=== PATIENT | female | born 1950 | race Caucasian/White ===

== ENCOUNTER → 2016-06-15 | Outpatient (CLI) | payer BC ==
[~2016-06-15] MED LIST: AZIT250T5 PO; CHOL100010 PO; CLTP PO; GLUC10007 PO; MISC1CAP7 PO; MULT-513 PO; OMEP40CA PO; OXYC-57 PO; SERT50TA PO; WARF2TAB PO
== END | disposition home or self-care (01) ==
LOC: C.RDSM 10:00
PROVIDERS: ATTEND Physical Medicine & Rehabilitation Sports Medicine
DX: Z96.659 Presence of unspecified artificial knee joint (principal)

== ENCOUNTER 2016-09-02 05:44 | Inpatient (IN) | payer OTHER, BC ==
--- NOTE | 2016-08-14 12:17 | PAT Medication Instructions ---
Service Date Aug 14, 2016. Current Home Medication List Calcium/Vitamin D (Caltrate 600 Plus *), 2 TAB PO BID Cholecalciferol (Vitamin D), 4,000 INTER.UNIT PO QAM Glucosamine Sulfate (Glucosamine), 1,000 MG PO QAM Multivitamins/Minerals (Mvi With Minerals), 1 TAB PO QAM Omeprazole (Prilosec), 40 MG PO QAM Sertraline (Zoloft), 50 MG PO QAM Medication Instructions For Your Scheduled Surgery - Hold the following medications 2 weeks prior to surgery: Glucosamine Sulfate (Glucosamine), 1,000 MG PO QAM - Hold the following medications the morning of surgery: Multivitamins/Minerals (Mvi With Minerals), 1 TAB PO QAM Calcium/Vitamin D (Caltrate 600 Plus *), 2 TAB PO BID Cholecalciferol (Vitamin D), 4,000 INTER.UNIT PO QAM - Take the following medications the morning of surgery with a sip of water: Omeprazole (Prilosec), 40 MG PO QAM Sertraline (Zoloft), 50 MG PO QAM If you have any questions please call us at [phone] (Dari Reich PA-C) or [phone] or [phone]
[2016-08-14 12:57] LABS: HEMATOCRIT 41.2 % (37-47); MEAN CELL VOLUME 89.8 fL (80-100); MEAN CORPUSCULAR HEMOGLOBIN 30.7 pg (25-34); RED BLOOD COUNT 4.59 M/uL (4.2-5.4); WHITE BLOOD COUNT 4.52 K/uL (4.8-10.8)
[2016-08-14 12:58] LABS: BASO % 0.4 %; BASO ABS # 0.02 K/uL (0-0.2); COMPLETE YES; EOS % 2.9 %; LYMPH % 23.5 %; LYMPH ABS # 1.06 K/uL (1.2-3.4); MEAN CORPUSCULAR HGB CONC 34.2 g/dl (32-36); MEAN PLATELET VOLUME 9.7 fL (7.4-10.4); MONO % 7.5 %; NEUT % 65.7 %; PLATELET COUNT 382 K/uL (130-400)
[2016-08-14 13:00] LABS: URINE APPEARANCE CLEAR (CLEAR); URINE BILIRUBIN NEG (NEG); URINE COLOR YELLOW; URINE NITRITE NEG (NEG); URINE SPECIFIC GRAVITY 1.017 (1.000-1.030); UROBILINOGEN NEG (NEG); ZZUR CULT IF INDIC CLEAN CATCH NO
[2016-08-14 13:09] LABS: PROTHROMBIN TIME (PATIENT) 10.2 SECONDS (9.0-12.0)
[2016-08-14 13:15] LABS: BUN/CREATININE RATIO 20.2 (10-20); C-REACTIVE PROTEIN 0.62 mg/dl (0-0.29); CALCIUM 9.2 mg/dl (8.5-10.1); CREATININE 0.84 mg/dl (0.60-1.20); POTASSIUM 4.1 mmol/L (3.5-5.1)
[2016-08-14 13:24] LABS: MANUAL MICROSCOPIC REQUIRED? NO; REVIEW REQ? NO
--- NOTE | 2016-08-25 10:15 | HISTORY & PHYSICAL EXAMINATION ---
DATE OF ADMISSION: 09/02/2016 CHIEF COMPLAINT: Left knee pain. HISTORY OF PRESENT ILLNESS: This 65-year-old white female presents to the office with complaints of left knee pain that has developed over the last 6 months. She has been physically active and has been going to the gym. Pain is increasing. She notes occasional mild effusions. No redness or warmth. She denies any fevers or chills. There is a history of previous left knee hemiarthroplasty on 06/19/2004. She had done well with that until recently. Pain is now affecting her ADLs. X-rays have been obtained. She has a previous history of right total knee arthroplasty and has done very well with that. She elects to proceed with the same on the left. PAST MEDICAL HISTORY: Significant for DJD, GERD, and hiatal hernia. PREVIOUS SURGERIES: Neck surgery for diskectomy in 1990, left knee hemiarthroplasty in June 2004, right shoulder rotator cuff surgery August 2013, basal joint reconstruction of the thumb in 2006, right knee arthroscopy 2005, D&C, and right total knee replacement 09/17/2011. ALLERGIES: KNOWN ALLERGY TO KETOPROFEN, PENICILLIN, AND SULFA DRUGS. CURRENT MEDICATIONS: Advil p.r.n., Caltrate b.i.d., multivitamin daily, omeprazole 40 mg p.o. daily, and Zoloft 50 mg p.o. daily. FAMILY HISTORY: Significant for diabetes and heart disease. SOCIAL HISTORY: The patient is . No tobacco use, retired. REVIEW OF SYSTEMS: Significant for above stated conditions, otherwise unremarkable. PHYSICAL EXAMINATION: GENERAL: Well-developed and well-nourished elderly white female in no acute distress. Looks younger than her stated age. Alert and oriented. SKIN: Warm and dry with good turgor. No rashes or lesions. No ecchymosis or erythema. HEENT: Normocephalic and atraumatic. Eyes, PERRLA, EOMI. Nares patent bilaterally without turbinate enlargement. Oropharynx without erythema or exudate. No lesions noted. Uvula midline. Oral mucosa moist. Good dentition. HEART: RRR. No MGR. LUNGS: Clear to auscultation bilaterally. No crackles, rhonchi or wheezing. Good air movement. ABDOMEN: Obese. Bowel sounds present x4. Soft and nontender. No organomegaly. No masses. MUSCULOSKELETAL: Left knee has a well-healed surgical scar. No intraarticular effusion. Focal discomfort with palpation over the joint line, both medially and laterally. Full terminal extension. Flexion to greater than 120 degrees. Strength is 5/5 with good quad tone. No defect in the patellar tendon or quadriceps tendon. Stable collateral ligaments. Ambulatory with a fairly normal gait. NEUROLOGIC: Gross sensation is intact across both lower extremities by soft touch. Peripheral pulses are 2+. DATA: Radiographic images previously obtained show the hemiarthroplasty with fragmentation of some of her cement as well as some arthritic changes in the lateral compartment. IMPRESSION: Left knee degenerative joint disease with medial hemiarthroplasty. PLAN: The patient was educated regarding today's findings. Informed written consent was obtained to proceed with left knee open conversion of hemiarthroplasty to total knee arthroplasty. Postoperative prescriptions for Percocet and Coumadin will be provided at discharge from the hospital. Anticipate discharge to home with outpatient PT upon discharge. She already has a walker and cane. Medical clearance has been requested from her PCP. Preoperative lab work, EKG, chest x-ray, sed rate and CRP have been obtained. TAURUS
[2016-09-02] VITALS (8 sets, daily range): BP systolic 112–143; BP diastolic 69–85; PULSE 62–78; TEMP 36.4–36.8; O2SAT 94–100; Ht 167.6 cm; Wt 86.0 kg
[~2016-09-02] VITALS: Ht 167.6 cm; Wt 86.0 kg
[~2016-09-02 05:44] MED LIST changes: -AZIT250T5 PO; +LACTATED RINGER'S 1000ML 500 ML IV ONE; -MISC1CAP7 PO; -OXYC-57 PO; -WARF2TAB PO
[2016-09-02] MEDS ORDERED: CEFAZOLIN 2000 MG/60 ML D5W 60 ML IV SCH (06:00)
[2016-09-02] MEDS ORDERED: LACTATED RINGER'S 1000ML IV SCH (06:00)
[2016-09-02] MEDS ORDERED: LACTATED RINGER'S 1000ML 1,000 ML IV SCH (06:00)
[2016-09-02] MEDS ORDERED: ROPIVACAINE 5MG/ML 30 ML 150 MG, BUPIVACAINE/EPINEPHR 0.5% MPF 30 ML, KETOROLAC TROMETH... INFIL SCH ×7 (06:00)
[2016-09-02] MEDS ORDERED: TRANEXAMIC ACID INJ 1,000 MG in SODIUM CHLORIDE 0.9% 100ML 100 ML IV SCH ×2 (06:00→17:00)
[2016-09-02] MEDS ORDERED: VANCOMYCIN INJ 1,300 MG in SODIUM CHLORIDE 0.9% 250ML 250 ML IV SCH ×2 (06:00→21:00)
[2016-09-02] MEDS ORDERED: TRAMADOL HCL 50 MG TAB PO SCH (06:00)
[2016-09-02] MEDS ORDERED: LACTATED RINGER'S 1000ML 500 ML IV ONE (06:00)
--- NOTE | 2016-09-02 06:20 | History & Physical Bridge Note ---
H&P Re-Evaluation Bridge Note: I have examined the patient, reviewed the History & Physical and in the interval since the performance of the History & Physical I have noted the following changes of clinical significance: No changes noted
[2016-09-02] MEDS ORDERED: BUPIVACAINE 0.25% 30 ML VIAL ONE (07:26)
[2016-09-02] MEDS ORDERED: BUPIVACAINE 0.5 % 5 MG/1 ML PF 10ML VIAL ONE (07:26)
[2016-09-02] MEDS ORDERED: ONDANSETRON INJ 2 MG/ML 2 ML VIAL IV PRN ×2 (07:30→11:00)
[2016-09-02] MEDS ORDERED: FENTANYL CITRATE INJ 50 MCG/1 ML 2 ML VIAL IV PRN (07:30)
[2016-09-02] MEDS ORDERED: EpHEDrine SULFATE INJ 50 MG/ML AMP IV PRN (07:30)
[2016-09-02] MEDS ORDERED: ATROPINE SULFATE 0.1 MG/ML 5ML SYR IV PRN (07:30)
[2016-09-02] MEDS ORDERED: MIDAZOLAM HCL 1 MG/ML 2ML VIAL ONE ×3 (07:32→09:01)
[2016-09-02] MEDS ORDERED: PROPOFOL IV EMULSION 10 MG/ML 20 ML VIAL IV ONE ×2 (07:50→10:24)
[2016-09-02] MEDS ORDERED: POVIDONE-IODINE OP SOLN 30 ML BTL ONE (08:24)
[2016-09-02] MEDS ORDERED: ORTHO JOINT ANESTHETIC ONE (08:24)
--- NOTE | 2016-09-02 10:49 | [facility] Post Operative Brief Note ---
Immediate Operative Summary Operative Date Sep 02, 2016. Pre-Operative Diagnosis Left knee degenerative joint disease with medial hemiarthroplasty Post-Operative Diagnosis Same as preoperative diagnosis Procedure(s) Performed Left Knee Hemiarthroplasty Conversion to Left Total Knee Arthroplasty Surgeon Dr. Mitul Raphael Grain Combine Driver Surgeon(s) Thai Ma PA-C Estimated Blood Loss 25 ml Findings poly wear/well fixed implants/lateral and patellofemarol djd Fluids (cc crystalloids) 1800cc Specimens Permanent Specimens A: Explanted hardware left knee B: Left knee bone and tissue Drains none Anesthesia spinal Complication(s) None Disposition Recovery Room / PACU
[2016-09-02] MEDS ORDERED: ALUMINUM/MAGNESIUM/SIMETH (MAALOX MAX) 30 ML UDC PO PRN (11:00)
[2016-09-02] MEDS ORDERED: BISACODYL 10 MG SUPP PR PRN (11:00)
[2016-09-02] MEDS ORDERED: METOCLOPRAMIDE HCL INJ 5 MG/ML 2 ML VIAL IV PRN (11:00)
[2016-09-02] MEDS ORDERED: ACETAMINOPHEN 325 MG TAB PO PRN (11:00)
[2016-09-02] MEDS ORDERED: MoRPHine SULFATE 2 MG/ML CARP IV PRN (11:00)
[2016-09-02] MEDS ORDERED: DiphenhydrAMINE HCL 50 MG/ML VIAL IV PRN (11:00)
[2016-09-02] MEDS ORDERED: MAGNESIUM HYDROXIDE SUSP 30 ML UDC PO PRN (11:00)
[2016-09-02] MEDS ORDERED: ACETAMINOPHEN IV 100 ML IV PRN (11:00)
--- NOTE | 2016-09-02 11:00 | DIAGNOSTIC IMAGING REPORT ---
TWO VIEWS LEFT KNEE CLINICAL HISTORY: Postoperative examination. FINDINGS: AP and crosstable lateral portable views of the left knee are obtained. A left knee arthroplasty is in near anatomic alignment. There has been undersurface remodeling of the patella. No acute fracture is seen. There are expected postoperative changes around the knee including skin clips, soft tissue edema, and subcutaneous gas. IMPRESSION: Expected postoperative changes status post left knee arthroplasty. No acute fracture is seen. Electronically signed by: Flavio Terrell M.D. 09/02/2016 10:59 AM Dictated Date/Time: 09/02/2016 10:59 AM
--- NOTE | 2016-09-02 11:06 | OPERATIVE REPORT ---
DATE OF OPERATION: 09/02/2016 PREOPERATIVE DIAGNOSIS: Left knee degenerative joint disease with medial hemiarthroplasty. POSTOPERATIVE DIAGNOSIS: Left knee same. PROCEDURE: Left knee conversion of hemiarthroplasty to total knee arthroplasty. SURGEON: Dr. Zuniga. SIDE SHOW ENTERTAINER: Boone Ma PA-C. HISTORY OF PRESENT ILLNESS: This 65-year-old white female presented to the office with complaints of left knee pain that had been getting progressively worse. She was trying to be more active in workout but her knee pain was inhibiting her progress. She had tried conservative care measures without success. She elected to proceed with surgical intervention after being educated about potential risks and outcomes. OPERATION: The patient was administered a spinal anesthetic and then taken to the operating room where she was given sedation. She was prepped and draped in the usual sterile fashion. Please see Dr. Zuniga's operative report for specifics of the procedure. I was present for the entire case from initial patient positioning through final wound closure. Assistance was provided in tissue retraction, hemostasis, removal of previous hardware, trial implant placement, final implant placement, and final wound closure. The patient was taken to the recovery room in satisfactory condition. I attest to the content of the Intraoperative Record and any orders documented therein. Any exceptions are noted below. TAURUS
--- NOTE | 2016-09-02 11:10 | OPERATIVE REPORT ---
DATE OF OPERATION: 09/02/2016 PREOPERATIVE DIAGNOSIS: Advancing osteoarthritis, left knee in the presence of hemiarthroplasty medial compartment. POSTOPERATIVE DIAGNOSIS: Same. OPERATION PERFORMED: Conversion of hemiarthroplasty to total knee replacement and removal of hemiarthroplasty implant and conversion to total knee replacement, cemented left knee. SURGEON: Dr. Zuniga. ROADSIDE MECHANIC: Boone Ma PA-C. No resident or fellow available. SUMMARY OF IMPLANTS: Size 3 left posterior approach posterior cruciate substituting femur, size 4 tibial tray, oval dome 3 peg patella, tibial insert rotating platform size 3 15 mm thick posterior cruciate substituting. Two bags of Palacos G cement. ESTIMATED BLOOD LOSS: 25 mL. CRYSTALLOID: 1800 mL. DVT prophylaxis per protocol. PERIOPERATIVE SITUATION: Medically cleared female with hemiarthroplasty of her left knee that has been in for roughly 12 years now is having some increased wear throughout the knee joint and notes that she has pain that interferes with activities of daily living. She wants to proceed with conversion to total knee replacement. X-rays reveal some subchondral sclerosis about the tibia and the femur, some loose cement on the tibia. Of note, is that she has had no infection issues at any time. Her sed rate is within normal limits. C-reactive protein is 0.6. She has had no real effusion. OPERATION AND FINDINGS: OPERATION: The patient appropriately identified, site verified, consent verified, 1300 mg of vancomycin confirmed as being given. The left lower extremity was prepped and draped in usual routine fashion. Total tourniquet time was approximately 80 minutes. The old incision was utilized and extended proximally. Parapatellar arthrotomy performed. Appropriate soft tissue releases and debridement occurred. There was significant particulate wear from the poly and cement. There was no sign of any gross infection. The fluid was clear. The implants actually were not even loose, this was just all poly wear. The femur was addressed first. After appropriate soft tissue releases performed and distal femur entered the implant was left in position and using distal cutting jig was applied for 12 mm resection. The cut was then made, complete laterally, starting immediately and using the Vicente osteotomes and some saws the implant which was fixed solid was worked loose and ultimately removed without damaging any more of the femur. The cut was then completed. Proximal tibia was then delivered into the wound. The tibial implant was not loose. There was no sign of infection. The tibial alignment guide was seated. This made the cut just below the Repicci tray. The cut was then made, excellent tibia was obtained. There was a small cyst medially which was curetted. This had clear fluid in it. The tibia was sized to a 3. The femoral sizing guide was then seated, appropriate care taken to place the epicondylar axis in the right position working off the seating guide holes and then once it was verified in good position cutting block applied and the anterior and posterior condylar and chamfer cuts made. The flexion gap and extension gap were excellent. The femur again was sized to a 3 and that was between a 3 and 4, was measured 4 cut 3. There was no notching. Once this was verified that everything was good with the flexion extension gaps the box cut was made and the size 3 trial seated. Two injections of the Orthomix were placed in the posterior capsule prior to inserting the trial implant. The tibia was then broached and reamed. There was some minor cement that needed to be removed medially. This was all taken care without any undue harm to the tibia. The size 4 tray fit well and with a 15 mm spacer the knee was very stable in all planes including maximum flexion. The patella was sized to a 38, resection made leaving 15 mm, trial seating hole pegs made and the trial seated, it tracked well. All remaining implants were then removed and irrigated with Betadine, irrigated with Pulsavac, injected with Orthomix about the incision and the periosteum and then after everything was cleaned and dried the permanents were cemented into position. After 12 minutes, the tourniquet deflated. After 14 minutes the knee flexed and the trial implant removed. Some minor cement removal was needed. This was then irrigated with Betadine and Pulsavac and then Betadine again. The permanent liner seated, knee reduced and then the wound closed using #1 Ethibond, #1 Vicryl, 2-0 Vicryl and stainless steel clips. Appropriate dressing applied. The patient transferred to recovery room in satisfactory condition having tolerated the procedure well. SUMMARY OF IMPLANTS: As noted above. I attest to the content of the Intraoperative Record and any orders documented therein. Any exceptio ns are noted below.
[2016-09-02] MEDS ORDERED: MoRPHine SULFATE 4 MG/ML 1 ML CARP\\VIAL IV PRN (11:15)
[2016-09-02] MEDS ORDERED: OXYC-57 PO (11:23)
[2016-09-02] MEDS ORDERED: WARF2TAB PO (11:23)
[2016-09-02] MEDS ORDERED: AZIT250T5 PO (11:24)
--- NOTE | 2016-09-02 11:32 | Anesthesiology Progress Note ---
Anesthesia Post Op Note Date & Time Sep 02, 2016 at 11:32 Vital Signs Pain Intensity: 0 Vital Signs Past 12 Hours Date Time Temp Pulse Resp B/P Pulse Ox O2 Delivery O2 Flow Rate FiO2 09/02/16 11:25 58 16 127/70 99 Nasal Cannula 2 09/02/16 11:15 60 14 123/74 100 Nasal Cannula 2 09/02/16 11:05 65 14 117/72 100 Nasal Cannula 2 09/02/16 10:55 70 14 112/75 100 Nasal Cannula 2 09/02/16 10:47 36.1 73 16 108/68 99 Mask 10 09/02/16 06:10 36.8 75 18 135/85 97 Room Air Notes Mental Status: alert / awake / arousable, participated in evaluation Pt Amnestic to Procedure: Yes Nausea / Vomiting: adequately controlled Pain: adequately controlled Airway Patency, RR, SpO2: stable & adequate BP & HR: stable & adequate Hydration State: stable & adequate Neuraxial Anesthesia: was administered, sensory block is resolving Anesthetic Complications: no major complications apparent
--- NOTE | 2016-09-02 12:06 | PROGRESS NOTE ---
DATE: 09/02/2016 Postop check in the recovery room. At this point in time, spinal is still in place but she is comfortable. Her vital signs are stable. She is afebrile. She denies chest pain, shortness of breath, fever, chills, nausea, vomiting or headache. Wound dressing clean, dry and intact. Postop x-rays look excellent. ASSESSMENT: Doing well. Continue with care pathway. Mobilize TANA.
[2016-09-02] MEDS ORDERED: D5W AND 1/2NSS + 20MEQ KCL 1,000 ML IV SCH (12:45)
[2016-09-02] MEDS: FERROUS GLUCONATE 324 MG TAB PO SCH ×2 (14:18→18:25)
[2016-09-02] MEDS: KETOROLAC TROMETHAMINE 15 MG/ML VIAL IV. SCH ×2 (14:19→19:23)
[2016-09-02] MEDS: OXYCODONE HCL IR 5 MG TAB (IMMEDIATE RELEASE) PO PRN ×3 (14:27→22:09)
[2016-09-02] MEDS ORDERED: WARFARIN SOD 5 MG TAB PO ONE (16:00)
[2016-09-02] MEDS ORDERED: NURSING VERBAL MED ORDER ONE (20:15)
[2016-09-02] MEDS: DOCUSATE SODIUM 100 MG CAP PO SCH (21:32)
[2016-09-03 00:05] VITALS: BP 126/70; PULSE 82; TEMP 36.9; O2SAT 95
[2016-09-03] MEDS: KETOROLAC TROMETHAMINE 15 MG/ML VIAL IV. SCH ×2 (01:24→06:26)
[2016-09-03 03:20] VITALS: BP 129/66; PULSE 86; TEMP 36.7; O2SAT 93
[2016-09-03] MEDS: OXYCODONE HCL IR 5 MG TAB (IMMEDIATE RELEASE) PO PRN ×3 (03:32→09:01)
[2016-09-03 05:31] LABS: HEMATOCRIT 33.3 % (37-47); MEAN CELL VOLUME 92.5 fL (80-100); MEAN CORPUSCULAR HEMOGLOBIN 30.6 pg (25-34); MEAN PLATELET VOLUME 9.5 fL (7.4-10.4); PLATELET COUNT 254 K/uL (130-400); WHITE BLOOD COUNT 8.11 K/uL (4.8-10.8)
[2016-09-03 05:45] LABS: PROTHROMBIN TIME (PATIENT) 10.4 SECONDS (9.0-12.0)
[2016-09-03 05:55] LABS: BUN/CREATININE RATIO 16.4 (10-20); CALCIUM 8.1 mg/dl (8.5-10.1); CREATININE 0.84 mg/dl (0.60-1.20); POTASSIUM 4.1 mmol/L (3.5-5.1)
--- NOTE | 2016-09-03 07:02 | PROGRESS NOTE ---
DATE: 09/03/2016 Postop day 1 status post left total knee conversion of hemiarthroplasty to total knee replacement. At this point in time the patient is doing well, has no major issues. Denies nausea, vomiting, chest pain, shortness of breath, fever or chills. Her pain is well managed. Vital signs are stable. She is afebrile. Neurovascular check femoral sciatic nerve is good. Dressing clean, dry and intact. Abdomen soft, nontender. Calves nontender. Laboratory work reveals hematocrit is stable at 33.3, INR is 1.0, serology reveals hepatitis C screen is pending. ASSESSMENT: Overall, doing well status post conversion of hemiarthroplasty to total knee replacement. At this point in time that things are doing well. Will discharge today after PT, OT. Follow up in 2 weeks for staple removal. Discharge on 4 mg Coumadin daily. Discharge on rifampin 600 mg p.o. daily for a week since it is a revision. MTDD
[2016-09-03] MEDS ORDERED: RIFAMPIN 300 MG CAP PO STA (07:06)
[2016-09-03] MEDS ORDERED: DEXAMETHASONE INJ 10 MG in SYRINGE 0 ML IV ONE (07:30)
[2016-09-03 07:52] VITALS: BP 117/73; PULSE 76; TEMP 36.6; O2SAT 95
--- NOTE | 2016-09-03 08:53 | Orthopedic Progress Note ---
Orthopedic Progress Note Date of Service Sep 03, 2016. Subjective Post OP Day: 1 Reports: feeling well, pain controlled w PO medications, Denies: SOB, calf pain , chest pain, complaints, light headedness, nausea / vomiting Additional Notes: desires to go home today Objective calves soft nontender, N/V intact, capillary refill less than 2 sec., dressing C /D/I, incision C/D/I, A&O x3, toes mobile, CMS intact scant drainage, wound looks very good. Date Time Temp Pulse Resp B/P Pulse Ox O2 Delivery O2 Flow Rate FiO2 09/03/16 08:22 Room Air 09/03/16 07:52 36.6 76 19 117/73 95 Room Air 09/03/16 03:20 36.7 86 16 129/66 93 Room Air 09/03/16 00:15 Room Air 09/03/16 00:05 36.9 82 18 126/70 95 Room Air 09/02/16 19:18 36.8 78 16 125/76 94 Room Air 09/02/16 15:18 36.5 76 16 112/69 96 Room Air 09/02/16 14:10 76 18 118/72 09/02/16 14:00 Room Air 09/02/16 13:42 36.6 76 18 128/78 100 Nasal Cannula 2.0 09/02/16 12:53 70 18 119/73 99 2.0 09/02/16 12:15 64 16 143/83 98 Nasal Cannula 2.0 09/02/16 11:45 36.4 62 12 127/73 98 Nasal Cannula 2.0 09/02/16 11:45 Nasal Cannula 09/02/16 11:45 Nasal Cannula 2.0 09/02/16 11:35 36.5 66 20 121/73 100 Nasal Cannula 2 09/02/16 11:25 58 16 127/70 99 Nasal Cannula 2 09/02/16 11:15 60 14 123/74 100 Nasal Cannula 2 09/02/16 11:05 65 14 117/72 100 Nasal Cannula 2 09/02/16 10:55 70 14 112/75 100 Nasal Cannula 2 09/02/16 10:47 36.1 73 16 108/68 99 Mask 10 Laboratory Results 24 Hours: Test 09/03/16 05:22 Hematocrit 33.3 % Hemoglobin 11.0 g/dL Prothromb Time International Ratio 1.0 Prothrombin Time 10.4 SECONDS Assessment & Plan Assessment: Left knee post op day 1conversion from mai arthroplasty to total knee arthroplasty Plan: PT/OT today coumadin per nomogram will send home on Zithromax 250mg daily instead of Rifampin. Discussed change with Dr. Zuniga. Pt takes clindamycin without issue and is not sure why erythromycin is listed as an allergy dressing changed today by me anticipate D/C to home today with outpatient PT to start on Wednesday Discharge Planning Discharge Planning: home Pain Management: Percocet DVT Prophylaxis: TEDs, SCDs, Coumadin
--- NOTE | 2016-09-03 08:57 | Discharge Instructions ---
Discharge Instructions Date of Service Sep 02, 2016. Admission Reason for Admission: Left Knee Degenerative Joint Disease W/Medial Arth Discharge Discharge Diagnosis / Problem: Left knee s/p total knee replacement Discharge Goals Goal(s): Decrease discomfort, Improve function, Increase independence Activity Recommendations Activity Limitations: as noted below Lifting Limitations: gradually increase as tolerated Exercise/Sports Limitations: until after follow-up appointment Shower/Bathe: keep incision dry Driving or Machine Use: No driving until cleared by Dr. Zuniga Weightbearing Status: Left weightbearing (as tolerated) . Instructions / Follow-Up Instructions / Follow-Up New Medicine: * You will likely be taking one or more of these medications: 1. Percocet - Take, as directed, when you need it, every four to six hours to control your pain. 2. Iron Sulfate - Take 1 time each day for the month after surgery to help you replace the blood lost during surgery. 3. Coumadin - Thins your blood to lessen the chance of forming a blood clot. The dose of this is different for each person and is based on your blood tests that are done twice a week. * The most common side effects of pain medicine and iron are nausea and constipation. If nausea or constipation is too much of a problem or if you have any questions about your new medicines or doses, call [facility] at . We will try to help you manage these issues. VERY IMPORTANT TO READ AND REVIEW" Blood Clots and Blood Thinning Medicine: * You are given Coumadin during the immediate post-operative period to lessen the risk of blood clots forming in your legs and/or lungs. Coumadin is usually given for six weeks after surgery. * The prescription is for 2 mg tablets. At discharge, you should understand your dose and take it all at the same time every day, preferably after dinner. * You need to get your blood checked 1 - 2 times per week for six weeks or as directed. * If your dose needs to change, we will call you. Do not take your medication on the day of the blood test until we call you. Pain: * The immediate post-operative period after knee replacement surgery is often quite painful. * You are given a prescription for pain medicine. You should take it, as directed, when you need it, especially before physical therapy and before going to bed. Pain that interferes with sleep is very common and can last several months. * You will likely need pain medicine for the first four to six weeks. It will not stop all of the pain. The pain will lessen and as you feel better, you may change to milder pain medicine such as Tylenol. * The most common side effects of pain medicine are nausea and constipation, so don't take more than you need. Physical Therapy: * You will have physical therapy two or three times each week for four to six weeks after your surgery in order to regain your knee range of motion and to retrain your knee to work properly. * It is just as important to make sure you are getting your knee perfectly straight as it is to regain your knee bend. * Taking a pain pill an hour before therapy can help you have a more productive and comfortable therapy session if needed. Home Exercise: * You were shown a series of exercises (heel props, heel slides, etc.) in the hospital. Do these exercises three to four times each day including the exercises you were shown in physical therapy. Walking: * Get up and walk several times each day. For the first four weeks, try not to stand or walk for more than one hour at a time. If you do stand or walk for more than one hour, you will not hurt anything, but your knee and leg will likely swell. * As you feel comfortable, you may change from the walker or crutches to a cane and then to independent walking. SELF CARE INSTRUCTIONS AFTER TOTAL KNEE REPLACEMENT A. You may need to continue a physical therapy program after discharge from the hospital. There are several options available to you. Your doctor will assist you in selecting the best one for you. 1. An out-patient facility 2 to 3 times a week for therapy or home therapy. 2. Continue working on all exercises taught to you in the hospital. Your goals should be to increase bending of your knee to 90 degrees and beyond and to fully straighten your knee. B. You may progress at your own pace from walking with a walker or crutches to a cane; then to no assistive devices. C. Make walking a part of your daily routine. Be up as much as comfortable with rest periods throughout the day. Rest with leg elevation is very important. Use the ice wrap frequently for the first 3-4 weeks. D. There are no restrictions on activities. 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 E. Wear the long elastic stockings (CHAPARRITA hose) 20 hours a day for six weeks after surgery. They can be removed several times a day for laundering and for a shower. F. Do not place a pillow behind your knee when resting. A pillow at your ankle is okay. VERY IMPORTANT TO READ AND REVIEW A. Take Coumadin, Aspirin or Lovenox (blood thinning medications) as directed by your doctor. If on Coumadin, have a pro-time (blood test) drawn according to your doctor's instructions. This will tell the doctor how well the Coumadin is thinning your blood. 1. YOU WILL BE GIVEN AN ORDER AT DISCHARGE FOR PT/INR (BLOOD WORK). PLEASE HAVE THIS DONE INSTRUCTED. PLEASE CALL OUR OFFICE AFTER YOUR BLOODWORK IS COMPLETE SO WE CAN TRACK YOUR RESULTS. IF YOU ARE GOING TO OUTPATIENT PHYSICAL THERAPY, YOU WILL NEED TO GO TO OUTPATIENT TESTING TO HAVE IT DRAWN. B. There are a few signs you need to watch for after you are home. Call [facility] if you notice any of the followin. Increased severe knee pain. Some pain is expected especially when you exercise. 2. Increased swelling in your leg or knee; pain or swelling of the calf muscle in either lower leg. 3. Any fluid drainage from the incision. 4. Shortness of breath or chest pain. C. Please call [facility] at if you have any concerns or questions about your operation or recovery. The doctor or his nurse will return your call promptly. D. You must take antibiotics before dental work, bladder, bowel or other surgery. Call the office to obtain a prescription at least 2 days prior to your appointment. * CALL IF INCREASED PAIN, REDNESS, DRAINAGE OR FEVER GREATER THAT 101. * Sutures should be removed 12-14 days after surgery unless you are on chronic steriods, then it will be 14-18 days after surgery. Call your doctor if: * Temperature above 101 degrees F. * Pain not relieved by pain medicine ordered. * Increased drainage or redness from incision. * Notify your doctor with any questions or concerns. Current Hospital Diet Patient's current hospital diet: Regular Diet Discharge Diet Recommended Diet: Regular Diet Procedures Procedures Performed: Left Knee Hemiarthroplasty Conversion to Left Total Knee Arthroplasty Pending Studies Studies pending at discharge: no Medical Emergencies . Who to Call and When: Medical Emergencies: If at any time you feel your situation is an emergency, please call 911 immediately. . Non-Emergent Contact Non-Emergency issues call your: Primary Care Provider, Surgeon Call Non-Emergent contact if: temperature is above 100.5, wound has increased drainage, wound has increased redness, wound has increased pain, you have any medication questions . "Provider Documentation" section prepared by Boone Ma PA-C. VTE Core Measure Inpt VTE Proph given/why not?: Warfarin (Coumadin), T.E.D. Stockings, SCD's [place] Drug Monitoring Program Search Results: no issues identified
[2016-09-03] MEDS: FERROUS GLUCONATE 324 MG TAB PO SCH (08:59)
[2016-09-03] MEDS: DOCUSATE SODIUM 100 MG CAP PO SCH (08:59)
[2016-09-03] MEDS ORDERED: PANTOprazole SOD 40 MG TAB PO SCH (09:00)
[2016-09-03] MEDS ORDERED: SERTRALINE HCL 50 MG TAB PO SCH (09:00)
[2016-09-03] MEDS ORDERED: MULTIVITAMIN TAB PO SCH (09:00)
[2016-09-03] MEDS ORDERED: AZITHROMYCIN 250 MG TAB PO ONE (09:45)
[2016-09-03] MEDS ORDERED: WARFARIN SOD 5 MG TAB PO SCH (10:00)
[2016-09-03 10:38] VITALS: BP 117/73; PULSE 76; TEMP 36.6; O2SAT 95
--- NOTE | 2016-09-08 16:52 | DISCHARGE SUMMARY ---
ATTENDING PHYSICIAN: Dr. Zuniga. CONSULTANTS: None. CONDITION ON DISCHARGE: Stable. ADMITTING DIAGNOSIS: Left knee degenerative joint disease. DISCHARGE DIAGNOSIS: Left knee status post conversion of hemiarthroplasty to total knee arthroplasty. HISTORY OF PRESENT ILLNESS: This 65-year-old white female presented to the office with complaints of intractable left knee pain that developed over the previous 6 months. Pain was worse with activity. There was a history of previous left knee hemiarthroplasty on 06/19/2004. She had done well with that until recently. Pain was affecting her ADLs. She has a previous history of right total knee arthroplasty and did very well with that. She elected to proceed with the same on the left. HOSPITAL COURSE: The patient was admitted through same day surgery on 09/02/2016. She underwent successful left knee conversion of hemiarthroplasty to total knee arthroplasty. She was taken to recovery room in satisfactory condition. The patient did well. She was transferred to the floor. She did well overnight and had no episodes of chest pain, shortness of breath, fever, chills, nausea, vomiting, or headache. Pain was well managed. She was reevaluated on the morning of 09/03/2016 and was found to be doing well. She again denied any nausea, vomiting, chest pain, shortness of breath, fever, or chills. Pain remained well managed. She was able to participate in physical therapy on 09/02/2016 as well as 09/03/2016. She felt well enough for discharge after physical therapy. She did receive postop vancomycin 1300 mg IV on 09/02/2016. She received a dose of Zithromax 250 mg p.o. on 09/03/2016 prior to discharge. The patient was started on Coumadin immediately postop. She was discharged on 4 mg daily and will have this checked on Wednesday09/07/2016 for adjustment. DISCHARGE MEDICATIONS: Zithromax 250 mg p.o. daily for a week, Percocet 5/325 mg 1-2 tablets every 4 hours as needed, Coumadin 4 mg p.o. daily. Continue her Caltrate 600 Plus 2 tablets b.i.d., vitamin D 1000 international units 4 tablets q.a.m., multivitamin daily, Prilosec 40 mg p.o. q.a.m., and Zoloft 50 mg b.i.d. p.o. q.a.m. LABORATORIES: The patient's H\T\H remained stable. Postop day #1 they were 11.0 and 33.3. INR was 1.0. Chem panel was unremarkable with sodium of 144, potassium 4.1, CO2 32, chloride 108. His glucose remains stable at 102. DISCHARGE INSTRUCTIONS: Written discharge instructions were given to the patient. She is allowed to ambulate using her walker and weight bear as tolerated. She was using her knee brace in the hospital and will use it on postop day 2, then discontinue. Follow up at the office for physical therapy as scheduled on Wednesday. FOLLOW-UP APPOINTMENT: The patient has a followup appointment scheduled for September 17 for staple removal. TAURUS
== END 2016-09-03 12:05 | disposition home or self-care (01) | DRG 468 ==
LOC: ENRESERVTM → ENRESERVDT → C.ACU 05:44 → C.3E 06:20
PROVIDERS: ADMIT Physical Medicine & Rehabilitation Sports Medicine; ATTEND Physical Medicine & Rehabilitation Sports Medicine
PROC: 0SPD09Z Removal of Liner from Left Knee Joint, Open Approach (ICD-10-PCS; principal; 2016-09-02 08:45)
PROC: 0SPW0JZ Removal of Synthetic Substitute from Left Knee Joint, Tibial Surface, Open Approach (ICD-10-PCS; principal; 2016-09-02 08:45)
PROC: 0SRD0J9 Replacement of Left Knee Joint with Synthetic Substitute, Cemented, Open Approach (ICD-10-PCS; principal; 2016-09-02 08:45)
DX: T84.063A Wear of articular bearing surface of internal prosthetic left knee joint, initial encounter (principal); Y79.2 Prosthetic and other implants, materials and accessory orthopedic devices associated with adverse incidents; M17.12 Unilateral primary osteoarthritis, left knee; K21.9 Gastro-esophageal reflux disease without esophagitis; F32.9 Major depressive disorder, single episode, unspecified; E66.9 Obesity, unspecified; Z68.30 Body mass index [BMI] 30.0-30.9, adult; Z98.1 Arthrodesis status; Z96.651 Presence of right artificial knee joint; Z79.899 Other long term (current) drug therapy

== ENCOUNTER → 2016-10-12 | Outpatient (CLI) | payer BC, OTHER ==
[~2016-10-12] MED LIST changes: -LACTATED RINGER'S 1000ML 500 ML IV ONE; +OXYC-57 PO; +WARF2TAB PO
== END | disposition home or self-care (01) ==
LOC: C.RDSM 10:45
PROVIDERS: ATTEND Physical Medicine & Rehabilitation Sports Medicine
DX: M25.562 Pain in left knee (principal); Z96.652 Presence of left artificial knee joint

== ENCOUNTER → 2016-11-04 | Outpatient (CLI) | payer BC | END | disposition home or self-care (01) | LOC: C.PAPS 16:26 | PROVIDERS: ATTEND Obstetrics & Gynecology | DX: Z01.419 Encounter for gynecological examination (general) (routine) without abnormal findings (principal); R87.616 Satisfactory cervical smear but lacking transformation zone ==

== ENCOUNTER → 2017-05-11 | Outpatient (CLI) | payer BC ==
[~2017-05-11] MED LIST changes: -OXYC-57 PO; -WARF2TAB PO
--- NOTE | 2017-05-11 15:09 | MAMMOGRAPHY REPORT ---
BILATERAL DIGITAL SCREENING MAMMOGRAM WITH CAD: 05/11/2017 CLINICAL HISTORY: Routine screening. Patient has no complaints. TECHNIQUE: Bilateral CC, MLO and repeat right MLO views were obtained. Current study was also evalua fercho with a Computer Aided Detection (CAD) system. COMPARISON: Comparison is made to exams dated: 05/05/2016 mammogram, 05/02/2015 mammogram, 4 mammogram, 04/27/2013 mammogram, 04/25/2012 mammogram, and 04/23/2011 mammogram - [facility]. BREAST COMPOSITION: There are scattered areas of fibroglandular density in both breasts. FINDINGS: An asymmetry in the lateral right breast is stable on all available prior mammograms datin g back to at least 2007, therefore likely benign. No new suspicious mass, architectural distortion o r cluster of microcalcifications is seen. IMPRESSION: ACR BI-RADS CATEGORY 1: NEGATIVE There is no mammographic evidence of malignancy. A 1 year screening mammogram is recommended. The pa tient will receive written notification of the results. Approximately 10% of breast cancers are not detected with mammography. A negative mammographic report should not delay biopsy if a clinically suggestive mass is present. Ale Geronimo M.D. ay/:05/11/2017 11:49:45 Welding Machine Assembler: Mariana PHAM(Temo)(M), [facility] letter sent: Normal 1/2 BI-RADS Code: ACR BI-RADS Category 1: Negative
== END | disposition home or self-care (01) ==
LOC: C.MAMM 09:05
PROVIDERS: ATTEND Obstetrics & Gynecology
DX: Z12.31 Encounter for screening mammogram for malignant neoplasm of breast (principal)

== ENCOUNTER → 2017-06-28 | Outpatient (CLI) | payer BC | END | disposition home or self-care (01) | LOC: C.RDSM 09:15 | PROVIDERS: ATTEND Physical Medicine & Rehabilitation Sports Medicine | DX: Z47.1 Aftercare following joint replacement surgery (principal); Z96.652 Presence of left artificial knee joint ==